=== PATIENT | female | born 1950 | race Hispanic/Latino ===

== ENCOUNTER 2018-03-31 09:21 | Day surgery (SDC) | payer MEDICARE, BC ==
[2015-10-27 13:39] VITALS: BMI 28.9
[2018-03-31 09:58] VITALS: RESP 18; O2SAT 99
[2018-03-31] MEDS ORDERED: Bupivacaine 0.5% 50 ML IJ ONE (12:08)
[2018-03-31] MEDS ORDERED: Lidocaine 1% w Epi 1:100,000 Inj ONE (12:08)
[2018-03-31] MEDS ORDERED: Liquid Adhesive TOP ONE (12:09)
[2018-03-31] MEDS ORDERED: Lidocaine 1% Inj (20ml) ONE (12:09)
[2018-03-31] MEDS ORDERED: Bacitracin Ointment 30 GM TUBE ONE (13:14)
--- NOTE | 2018-03-31 13:45 | PCM.SURG1 ---
Surgeon's Initial Post Op Note - Surgeon's Notes Surgeon: Dr. [employer] Instructor: Dr. Jones PGY3 Pre-Operative Diagnosis: multiple sebaceous cysts of scalp x5 Operative Findings: sebaceous cyst of scalp x5 Post-Operative Diagnosis: same Operation Performed: excision of sebaceous cyst of scalp x5 Specimen/Specimens Removed: sebaceous cyst x5 Estimated Blood Loss: EBL {In ML}: 10 Blood Products Given: N/A Drains Used: No Drains Post-Op Condition: Good Date of Surgery/Procedure: 03/31/18 Time of Surgery/Procedure: 12:45
[2018-03-31 14:08] VITALS: BP 134/70; PULSE 72; TEMP 98
--- NOTE | 2018-04-08 22:03 | OP ---
PROCEDURE DATE: 03/31/2018 Ludmila Ma has multiple sebaceous cysts on the scalp. These were individually shaved, infiltrated with 1% Xylocaine and excised. The one anteriorly was as it looked a little bit more suspicious than the others. The others were cleaned out. The entire wall was removed, irrigated, dried, and closed with nylon. The anterior one was taken with an ellipse and closed with 3 sutures of nylon. were removed. The patient was taken to recovery room in good condition. Sponge and needle count was declared correct. Timur Steele MD
== END 2018-03-31 14:04 | disposition home or self-care (01) ==
LOC: OPSURG 09:21
PROVIDERS: ATTEND Surgery
DX: L72.3 Sebaceous cyst (principal); L72.12 Trichodermal cyst